=== PATIENT | male | born 1955 | race Caucasian/White ===

== ENCOUNTER 2024-12-28 17:32 | Emergency (ER) | payer MEDICARE, BC | END 2024-12-28 18:32 | disposition home or self-care (01) | LOC: FB.ED 17:32 | DX: J10.1 Influenza due to other identified influenza virus with other respiratory manifestations (principal); I10 Essential (primary) hypertension; Z79.899 Other long term (current) drug therapy | CPT/HCPCS: 87428-QW; 99283 ==